=== PATIENT | female | born 1985 | race Two or more races ===

== ENCOUNTER 2022-11-29 08:28 | Emergency (ER) | payer MEDICAID ==
[~2022-11-29] VITALS: Ht 172.7 cm; Wt 106.8 kg
[2022-11-29 09:35] VITALS: BP 158/92; PULSE 83; RESP 20; TEMP 98; O2SAT 98
== END 2022-11-29 11:40 | disposition left against medical advice (07) ==
LOC: ER 08:28
DX: T22.012A Burn of unspecified degree of left forearm, initial encounter (principal); Z53.21 Procedure and treatment not carried out due to patient leaving prior to being seen by health care provider; X16.XXXA Contact with hot heating appliances, radiators and pipes, initial encounter; Y93.89 Activity, other specified; Y92.89 Other specified places as the place of occurrence of the external cause; Y99.8 Other external cause status